=== PATIENT | female | born 1990 | race African-American/Black ===

== ENCOUNTER 2017-04-21 12:45 | Emergency (ER) | payer OTHER ==
[2017-04-21 12:52] VITALS: BP 122/83; PULSE 96; TEMP 98.5; BMI 27.8
[2017-04-21] MEDS ORDERED: ALBUTEROL SO4 2.5/IPRATROPIUM 0.5 INH SOL 3 ML VIAL.NEB. NEB ONE ×3 (14:01→14:06)
[2017-04-21] MEDS ORDERED: KETOROLAC TROMETHAMINE 30 MG/1 ML VIAL IM ONE (14:02)
--- NOTE | 2017-04-21 14:03 | PDOC ---
History of Present Illness - General Chief Complaint: Respiratory Stated Complaint: SOB, BODY PAIN Time Seen by Provider: 04/21/17 13:17 History Source: Patient Exam Limitations: No Limitations - History of Present Illness Initial Comments: 04/21/17 13:57 26 year old with medical history of gatritis, and asthma and surgical history of tonsillectomy and removal of adenoids. Reports bodyaches, shortness of breath, non productive coughing and wheezing x 1 week. Seen at [facility] yesterday states treated with 2 pills of azithromycin and albuterol pump for bronchitis. States symptoms are not better. Timing/Duration: reports: week Severity: reports: mild Possible Cause: Yes: no prior episodes Modifying Factors: improves with: albuterol inhaler, antibiotics Associated Symptoms: reports: cough, shortness of breath Aspirin Received prior to arrival: Yes: no aspirin today ASA Contraindications(Core Measure): No: Allergy Beta Romi Contraindications(Core Measure): Yes: Not Prescribed Past History - Travel Traveled outside of the country in the last 30 days: No Close contact w/someone who was outside of country & ill: No - Past Medical History Allergies/Adverse Reactions: Allergies Allergy/AdvReac Type Severity Reaction Status Date / Time iodine Allergy Verified 04/21/17 12:52 Home Medications: Ambulatory Orders Azithromycin 500 mg PO DAILY #3 tablet 04/21/17 Asthma: Yes COPD: No Other medical history: ovarian cysts - Suicide/Smoking/Psychosocial Hx Smoking History: Current every day smoker Information on smoking cessation initiated: No Substance Use Type: Marijuana Review of Systems - Review of Systems Able to Perform ROS?: Yes Is the patient limited Irish proficient: No Constitutional: Yes: Malaise. No: Chills, Fever HEENTM: No: Nose Pain, Tinnitus, Throat Pain, Mouth Pain Respiratory: Yes: Cough, Shortness of Breath Cardiac (ROS): No: Chest Pain ABD/GI: No: Nausea, Poor Appetite, Abdominal cramping : No: Burning, Dysuria, Lesions Musculoskeletal: No: See HPI, Back Pain Integumentary: No: Bruising, Dryness, Erythema Neurological: No: Headache, Numbness, Tingling, Tremors, Other Psychiatric: No: Frequent Crying, Mood Swings *Physical Exam - Vital Signs Last Vital Signs Temp Pulse Resp BP Pulse Ox 98.5 F 96 H 18 122/83 99 04/21/17 12:49 04/21/17 12:49 04/21/17 12:49 04/21/17 12:49 04/21/17 12:49 - Physical Exam General Appearance: Yes: Nourished, Appropriately Dressed HEENT: positive: EOMI. negative: Pharyngeal Erythema, Tonsillar Exudate, Nasal Congestion Neck: positive: Supple. 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, Fully Oriented, Alert Medical Decision Making - Medical Decision Making 04/21/17 14:05 26 year old female with flu-like symptoms for one week treated with azithromycin 2 tabs and albuterol pump yesterday neb tx x 2 chest xray ordered 04/21/17 15:20 chest xray normal wheezing improved after nebulizers rx: z-pack *DC/Admit/Observation/Transfer Diagnosis at time of Disposition: Asthma exacerbation Qualifiers: Asthma severity: mild Asthma persistence: intermittent Qualified Code(s): J45.21 - Mild intermittent asthma with (acute) exacerbation - Discharge Dispostion Disposition: HOME Condition at time of disposition: Good Admit: No - Prescriptions Prescriptions: Azithromycin 500 mg PO DAILY #3 tablet - Referrals Referrals: ON STAFF,NOT [Primary Care Provider] - Call tomorrow - Patient Instructions Printed Discharge Instructions: DI for Asthma -- Adult Additional Instructions: Please use albuterol pump every 4 hours for wheezing -please call primary physician for a follow up appointment -drink plenty fluids and take tylenol or ibuprofen for fever - Post Discharge Activity Forms/Work/School Notes: Back to Work
[2017-04-21] MEDS ORDERED: KETOROLAC TROMETHAMINE 30 MG/1 ML VIAL ONE (14:06)
== END 2017-04-21 15:27 | disposition home or self-care (01) ==
LOC: JERFT 12:45
PROC: 3E0F7GC Introduction of Other Therapeutic Substance into Respiratory Tract, Via Natural or Artificial Opening (ICD-10-PCS; principal; 2017-04-21)
PROC: 3E0F7GC Introduction of Other Therapeutic Substance into Respiratory Tract, Via Natural or Artificial Opening (ICD-10-PCS; 2017-04-21)
PROC: 3E0233Z Introduction of Anti-inflammatory into Muscle, Percutaneous Approach (ICD-10-PCS; 2017-04-21)
DX: J45.21 Mild intermittent asthma with (acute) exacerbation (principal)
CPT/HCPCS: 71045-TC-FY; 99281-25